=== PATIENT | male | born 1945 | race Caucasian/White ===

== ENCOUNTER 2018-03-22 16:34 | Inpatient (IN) ==
[2018-03-22] MEDS ORDERED: Naloxone Inj 0.4 MG/ML Vial IV.PUSH PRN (17:51)
[2018-03-22] MEDS ORDERED: Bisacodyl 10 MG Supp RECTAL PRN (17:51)
[2018-03-22] MEDS ORDERED: Post-op Orders (for Pharmacy) OTHER ONE (17:51)
--- NOTE | 2018-03-22 18:40 | MH ---
cc: Lenin Vanessa MD DATE OF ADMISSION: 03/22/2018 ADMITTING PHYSICIAN: Lenin Vanessa MD, vascular surgery. REASON FOR ADMISSION: Large carotid body tumor. HISTORY OF PRESENT ILLNESS: This 73-year-old male with negligent previous medical and surgical history, noted, last year, a mass in his left neck. Apparently he did not present to a doctor right away, then went later on, and was noted to have about a 3 cm mass in his left neck and was worked up on an as outpatient basis and referred to my office. The patient was worked up at [facility] where he did not want to have surgery, so he came to us. The CT scan and studies are now available. The patient is now asymptomatic, except for the mass in his neck. PAST MEDICAL AND SURGICAL HISTORY: Negative. ALLERGIES: NEGATIVE. MEDICATIONS: Negative. SOCIAL HISTORY: The patient does not smoke, does not drink. He has a fairly active lifestyle. PHYSICAL EXAMINATION: GENERAL: Reveals a pleasant 73-year-old male. HEENT: Normocephalic. No trauma to head. Pupils equal, reactive. Extraocular muscles intact. No hemotympanum. No Myers sign. The auricles. Oral cavity is partially in disrepair. NECK: Bilateral carotid pulses. No bruits. Left side of the neck reveals about 3 cm in diameter golf ball size mass in the mid neck at the bifurcation of the common carotid artery. This is consistent with a glomus caroticus tumor. The remainder of the neck exam is normal. CHEST: Bilateral breath sounds. HEART: Regular rate and rhythm. ABDOMEN: Soft. Active bowel sounds. No rebound, no guarding, no masses. EXTREMITIES: Grossly within normal limits with proximal and distal palpable pulses. No signs of vascular deficit. NEUROLOGIC: The patient is intact. IMPRESSION AND RECOMMENDATIONS: I reviewed laboratory and diagnostic procedures. This patient has had a MRA and CT scan of the neck and both were presented to Dr. Cesar Bush, who is a preeminent radiologist. 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 These are usually very vascular tumors. The patient will have an ultrasound prior to surgery to see how mobile this is, and will undergo formal removal of the same. I explained the risks and benefits of the procedure. MD RABIA Ireland/demetri , 05:50 PM , 05:57 PM
[2018-03-22] MEDS: Sod Chloride 0.9% Inj 1,000 ML IV.CONT SCH (18:45)
--- NOTE | 2018-03-22 19:03 | XR ---
EXAM DATE: 03/22/2018 6:54 PM EDT AGE/SEX: 73 years / Male INDICATIONS: Evaluate for pneumonia, pneumothorax or communicable disease. Pre-op for carotid tumor resection. Mild chest discomfort. CLINICAL DATA: This is the patient's initial encounter. Patient reports that signs and symptoms have been present for 1 day and indicates a pain score of 1/10. MEDICAL/SURGICAL HISTORY: None. None. COMPARISON: . FINDINGS: A single AP view of the chest demonstrates the lungs to be symmetrically aerated without evidence of mass, infiltrate or effusion. The cardiomediastinal contours are unremarkable. Osseous structures a re intact. CONCLUSION: Negative examination. Electronically signed by: Obi Ugalde MD 03/22/2018 7:02 PM EDT
[2018-03-22] MEDS: Senna/Docusate Sodium 8.6/50 MG Tablet PO SCH (21:24)
[2018-03-22 21:50] LABS: Activated Partial Thrombo Time 27.8 sec (24.3-30.1); INR 1.1 Ratio; Prothrombin Time 11.2 sec (9.8-11.6)
[2018-03-22 21:54] LABS: Baso # (Auto) 0.1 th/mm3 (0.0-0.2); Baso % (Auto) 0.6 % (0.0-2.0); Eos # (Auto) 0.1 th/mm3 (0.0-0.4); Eos % (Auto) 1.4 % (0.0-4.0); Hematocrit 45.1 % (39.0-51.0); Hemoglobin 15.5 gm/dL (13.0-17.0); Lymph # (Auto) 1.9 th/mm3 (1.0-4.8); Lymph % (Auto) 22.5 % (9.0-44.0); Mean Corpuscular HGB Conc 34.4 % (32.0-36.0); Mean Corpuscular Hemoglobin 30.8 pg (27.0-34.0); Mean Corpuscular Volume 89.6 fL (80.0-100.0); Mean Platelet Volume 7.8 fL (7.0-11.0); Mono # (Auto) 0.4 th/mm3 (0.0-0.9); Mono % (Auto) 5.3 % (0.0-8.0); Neut # (Auto) 5.8 th/mm3 (1.8-7.7); Neut % (Auto) 70.2 % (16.0-70.0); Platelet Count 282 th/mm3 (150-450); Red Blood Count 5.03 mil/mm3 (4.50-5.90); Red Cell Distribution Width 13.6 % (11.6-17.2); White Blood Count 8.3 th/mm3 (4.0-11.0)
[2018-03-22 22:10] LABS: Alanine Aminotransferase 27 U/L (12-78); Albumin 3.3 g/dL (3.4-5.0); Anion Gap 10 meq/L (5-15); Aspartate Aminotransferase 21 U/L (15-37); Blood Urea Nitrogen 18 mg/dL (7-18); Calcium 8.1 mg/dL (8.5-10.1); Chloride 104 meq/L (98-107); Glomerular Filtration Rate 65 mL/min (>89); Glucose,Random 111 mg/dL (74-106); Sodium 140 meq/L (136-145)
[2018-03-22 22:12] LABS: Alkaline Phosphatase 91 U/L (45-117); Total Protein 7.3 g/dL (6.4-8.2)
[2018-03-23] MEDS: Sod Chloride 0.9% Inj 1,000 ML IV.CONT SCH ×2 (05:06→15:23)
[2018-03-23] MEDS ORDERED: HYDROmorphone PF Inj 2 MG/ML Vial ONE (08:46)
[2018-03-23] MEDS ORDERED: Nitroglycerin Drip Premix 50 MG/250 ML BOTTLE ONE (09:36)
[2018-03-23] MEDS ORDERED: Heparin - SQ 10,000 UNITS/ML Vial ONE (09:58)
[2018-03-23] MEDS ORDERED: Lidocaine 2% Inj 50 ML Vial ONE (09:58)
[2018-03-23] MEDS ORDERED: Protamine Sulfate Inj 50 MG/5 ML Vial ONE (09:58)
[2018-03-23] MEDS ORDERED: Heparin 10,000 UNITS/10 ML Vial (for IV use) ONE (09:58)
[2018-03-23] MEDS: Senna/Docusate Sodium 8.6/50 MG Tablet PO SCH ×2 (10:31→20:34)
[2018-03-23] MEDS ORDERED: Lidocaine PF 1% Inj 5 ML Syringe INFILTRATN ONE (12:00)
[2018-03-23] MEDS ORDERED: Glycopyrrolate Inj 1 MG/5 ML Syringe IV.PUSH ONE (12:00)
[2018-03-23] MEDS ORDERED: Sodium Chlor 0.9% Inj 250 ML IV.SIG ONE (12:00)
[2018-03-23] MEDS ORDERED: Neostigmine Inj 5 MG/5 ML Syringe IV.PUSH ONE (12:00)
[2018-03-23] MEDS ORDERED: Ketorolac Inj 30 MG/ML (IVP) Vial IV.PUSH ONE (12:00)
[2018-03-23] MEDS ORDERED: Sodium Chlor 0.9% Inj 500 ML IV.SIG ONE (12:00)
[2018-03-23] MEDS ORDERED: Phenylephrine/NS 1000 MCG/10ML Syringe IV.PUSH ONE (12:00)
[2018-03-23] MEDS ORDERED: fentaNYL Citrate Inj 100 MCG/2 ML Ampul ONE (13:07)
[2018-03-23] MEDS ORDERED: *Meperidine Inj 25 MG/ML Vial PERIprocedural Use ONLY ONE (13:08)
[2018-03-23] MEDS ORDERED: diphenhydrAMINE HCl 50 MG/ML VIAL IV.PUSH ONE (13:09)
[2018-03-23] MEDS ORDERED: Morphine Inj 4 MG/ML Vial IV.PUSH PRN (13:38)
[2018-03-23] MEDS ORDERED: *morphine SULFATE 10 MG/ML PERIprocedure ONLY ONE (13:55)
--- NOTE | 2018-03-23 17:41 | MP ---
cc: Lenin Vanessa MD DATE OF OPERATION: 03/23/2018 PREOPERATIVE DIAGNOSIS: Large chemodectoma (carotid body tumor). POSTOPERATIVE DIAGNOSIS: Large chemodectoma (carotid body tumor). OPERATIVE PROCEDURE: Exploration of the neck, internal and external carotid arteries and resection of the large carotid body tumor. SURGEON: Lenin Vanessa MD ANESTHESIA: General. ESTIMATED BLOOD LOSS: 100 mL INDICATIONS: This 73-year-old male was noted to have a large mass in his left neck. He was worked up as an outpatient and then underwent an ultrasound in the preop area by Dr. August Bush, who was kind to come up to assess the mobility of the tumor. It was noted that there was a fine plane between the tumor and the internal carotid artery and tumor was sort of stuck to the jugular vein, which was displaying. Patient was now taken to the operating room. The patient was prepped and draped in the usual fashion. Left pre sternocleidomastoid incision was made, deepened through the fascia to the level of the tumor, which is pushing the same up. There was about 7 or 8 veins that are crossing the tumor from the internal jugular somewhere from the depth over to the other side. These are individually ligated with 2-0 silks and smaller ones with Ligaclips and divided. Tumor was then very carefully dissected with combined sharp and blunt dissection. The inferior margins of the tumor were identified and medial margins identified fairly simply. The lateral margin tumor; however, it is identified but this is stuck inferiorly to the internal carotid artery. Therefore, the internal carotid artery dissected around inferior to the tumor free and the vessel loop placed around it and then superior to the tumor free and vessel loops placed around it in order to control this should bleeding occur. The jugular vein is similarly encircled with vessel loops. The tumor is now very carefully dissected down to the internal carotid artery and then a plane was created between the 2, and more peeled out. It was attached at the base to the bifurcation of the carotid artery and this was very carefully dissected and then 2-0 silk placed to divide the same. The internal jugular vein is now attended. There is technically no plane between the internal jugular vein and the tumor and this one was attached sort of to it, but the fine plane is very, very carefully created with blunt dissection with a right angle and tumor was lifted off of this. Additional veins were ligated, small arteries ligated and then tumor is removed. It measured about 6 cm and self-contained. It was sent for pathology. It is hard to tell what it is. It may be chemodectoma, might be an infected lymph node or some sort of teratoma or cyst, hard to tell. There were also additional tissue of lymph nodes sent for cultures. Hypoglossal nerve was carefully preserved identified and checked. Areas were then irrigated with copious amounts of saline. The course of internal and external carotid arteries was checked once more. No other abnormalities were found. The patient has bounding pulses in all 3 vessels when checked with Doppler. A NAHOMI drain was placed and incisions closed in layers with 0 Vicryl and 4-0 Monocryl. The patient tolerated the procedure well. At the end of procedure, the patient is awake, alert and oriented, neurologically fully intact. Lenin Vanessa MD SJ/ct , 04:34 PM , 04:45 PM
--- NOTE | 2018-03-23 21:33 | ECG ---
Date Performed: 03/22/2018 Time Performed: 19:30:21 PTAGE: 73 years EKG: Sinus rhythm WITH OCCASIONAL VENTRICULAR PREMATURE COMPLEXES BORDERLINE ECG NO PREVIOUS TRACING DOCTOR: Apolinar Corona Interpretating Date/Time 03/23/2018 21:32:10
[2018-03-24] MEDS: Senna/Docusate Sodium 8.6/50 MG Tablet PO SCH (08:06)
[2018-03-24 08:20] VITALS: PULSE 66
[2018-03-24 08:24] VITALS: BP 157/81; RESP 20; TEMP 97.8; O2SAT 98
--- NOTE | 2018-03-24 10:08 | P.PNVS ---
Subjective Subjective/Hospital Course: 73-year-old male presented with a large mass in his left neck appearing to be a glomus caroticus tumor measuring about 6 cm in diameter. Patient had successful resection of the tumor and exploration of the external/ internal carotid artery jugular vein Throughout the night patient is been stable awake alert and oriented Blood pressure has been within normal limits Incision NAHMOI drainage is minimal, neuro fully intact DC patient today Objective Vital Signs / I&O: Vital Signs 03/23/18 13:00 03/23/18 13:15 03/23/18 13:30 Temperature 97.3 F L Pulse Rate 66 53 L 67 Respiratory Rate 16 16 16 Blood Pressure 125/67 134/73 105/53 L Pulse Oximetry 100 98 100 03/23/18 14:00 03/23/18 15:00 03/23/18 16:00 Temperature 98.2 F Pulse Rate 63 66 70 Respiratory Rate 16 16 13 Blood Pressure 119/68 128/60 127/72 Pulse Oximetry 100 100 100 03/23/18 20:00 03/24/18 00:00 03/24/18 04:00 Temperature 98 F 97.8 F 98 F Pulse Rate 73 64 55 L Respiratory Rate 18 22 16 Blood Pressure 122/66 99/63 L 130/65 Pulse Oximetry 95 94 L 94 L 03/24/18 08:00 Temperature 97.8 F Pulse Rate 66 Respiratory Rate 20 Blood Pressure 157/81 H Pulse Oximetry 98 Intake & Output 03/23/18 03/24/18 03/24/18 18:59 06:59 18:59 Intake Total 3880 / 3880 1550 / 1550 Output Total 460 / 460 10 / 10 Balance 3420 / 3420 1540 / 1540 Weight 79.4 kg Intake: IV 1000 / 1000 400 / 400 NS Inj 1,000 ML @ 100 mls/hr IV 1000 / 1000 400 / 400 .CONT .Q10H JOHANNA Rx#:[id number] Oral 1380 / 1380 1150 / 1150 Anesthesia Amount 1500 / 1500 Output: Urine 450 / 450 Estimated Blood Loss 10 10 Wound Drainage 0 / 0 # 1 Left Neck NAHOMI Drain 0 / 0 Other: # Voids 4 Date of Last Bowel Movement 03/23/18 03/23/18 03/23/18 Laboratory Results - last 24 hr 03/22/18 20:35 Blood Type O Positive Antibody Screen Negative MTS Gel Crossmatch See Detail Microbiology 03/23/18 12:30 Gram Stain - Final Tissue - Neck Impressions Chest X-Ray 03/22/18 00:00 CONCLUSION: Negative examination.
--- NOTE | 2018-03-24 11:35 | US ---
EXAM DATE: 03/23/2018 11:28 AM EDT AGE/SEX: 73 years / Male INDICATIONS: Left carotid palpable lump. CLINICAL DATA: This is the patient's initial encounter. Patient reports that signs and symptoms have been present for 1 month and indicates a pain score of 0/10. MEDICAL/SURGICAL HISTORY: . Left carotid palpable lump. None. COMPARISON: No prior exams available for comparison. FINDINGS: A focused ultrasound of the palpable lump along the left neck demonstrates a prominent soft tissue ma ss measuring 2.8 x 2.2 cm. This requires further evaluation. CONCLUSION: 1. Nonspecific soft tissue mass in the left neck measuring 2.8 cm. Neoplastic disease is not exclude d. Recommend a CT soft tissue neck with IV contrast. Electronically signed by: Jordy Crawford MD 03/24/2018 11:33 AM EDT
== END 2018-03-24 10:37 | disposition home or self-care (01) ==
LOC: N07 16:34 → N03 03-23 13:05
PROVIDERS: ADMIT Surgery; ATTEND Surgery